=== PATIENT | male | born 1940 | race Two or more races ===

== ENCOUNTER 2019-06-30 15:14 | Emergency (ER) | payer OTHER ==
[~2019-06-30] VITALS: Ht 182.9 cm; Wt 72.6 kg
[2019-06-30] MEDS ORDERED: NORVASC2.5 M1 (15:30)
[2019-06-30] MEDS ORDERED: LIPITOR40 M1 (15:30)
[2019-06-30] MEDS ORDERED: AMIODARONE HCL100 MG (15:31)
[2019-06-30] MEDS ORDERED: ELIQUIS2.5 MG (15:31)
== END 2019-06-30 19:50 | disposition home or self-care (01) ==
LOC: ER 15:14
DX: R42 Dizziness and giddiness (principal)

== ENCOUNTER 2019-09-27 13:55 | Outpatient (CLI) | payer OTHER ==
[~2019-09-27 13:55] MED LIST: AMIODARONE HCL100 MG; ELIQUIS2.5 MG; LIPITOR40 M1; NORVASC2.5 M1
== END 2019-09-27 14:19 | disposition home or self-care (01) ==
LOC: TOM 13:55
PROVIDERS: ATTEND Otolaryngology Otology & Neurotology
DX: R42 Dizziness and giddiness (principal)
CPT/HCPCS: 70553; A9575

== ENCOUNTER 2019-09-29 13:12 | Outpatient (CLI) | payer OTHER | END 2019-09-29 13:28 | disposition home or self-care (01) | LOC: NUCLEAR 13:12 | PROVIDERS: ATTEND Otolaryngology Otology & Neurotology | DX: R42 Dizziness and giddiness (principal); I67.89 Other cerebrovascular disease ==